=== PATIENT | female | born 1945 | race Caucasian/White ===

== ENCOUNTER → 2017-02-18 | Outpatient (CLI) | payer MEDICARE, BC ==
[~2017-02-18] MED LIST: AMLODIPINE-BENA1 CAP PO; ASPIRIN EC81 M1 PO; ASPIRINEC PO; AZOR 5-20 MG T1 EACH PO; CENTRUM SILVER PO; CYMBALTA PO; CYMBALTA30 MG PO; FLAGYL250 M1 PO; FLORASTOR PO; FLOVENT DI50 MCG/DIS INH; FOSAMAX PLUS D1 TA1 PO; GABAPENTIN600 MG PO; HCTZ PO; HYDROCHLOROTHIA25 MG PO; KETOTIFEN; LEVAQUIN750 M1 PO; LIDODERM30 EA TOP; LORTAB 7.5-3251 EACH PO; LOTREL 5/20 MG1 CAP PO; METAMUCIL; METAMUCIL SMOOT1 PKT PO; METAMUCIL1 PKT PO; MIRALAX17 GM PO; MOTRIN600 MG PO; NABUMETONE PO; NEURONTIN PO; OMEPRAZOLE20 M2 PO; OMNICEF PO; PREDNISONE PO; PRILOSEC PO; ROBAXIN 750750 M1 PO; ST JOSEPH ASPIR81 M1 PO; SULINDAC150 MG PO; TESSALON200 MG PO; TOLECTIN PO; TYLENOL ARTHRITIS; TYLENOL COLD SE1 TAB PO; ULTRAM; ULTRAM PO; VICODIN 5/1 TAB 5/50 PO; VICODIN 5/500 T1 TAB PO; VITAMIN B 6 PO; VITAMIN B-6200 MG PO; VITAMIN B650 M1 PO; ZADITOR; ZADITOR5 M1 OU; ZYRTEC PO; [UNRECOGNIZED DRUG - OTHER] PO
--- NOTE | ~2017-02-18 | MY29 ---
[facility] A Service of [facility] RADIOLOGY TEXT RESULTS PATIENT: SIOMARA VALDEZ LOCATION: [facility] : 41 UNIT #: [id number] AGE: [address]: Roxana Forrester APRN SEX: F ORDER DR: [id number] [facility] [address] [facility] [place], [place] [address] [id number] O MR#: [id number] Acc #: [id number] NAME: SIOMARA VALDEZ : 1945 SEX: F STUDY DATE/TIME: 02/18/2017 13:57 UNIT: [facility] ROOM: STUDY DESCRIPTION: [facility] SCREENING W/ CAD BILAT Attending Physician: oRxana Forrester A.P.R.N. Ordering Physician: Roxana Forrester A.P.R.N. Primary Care Physician: Nayeli Ibarra M.D. MEDICAL IMAGING REPORT This report is preliminary unless electronic signature is present EXAM Bilateral digital screening mammogram with CAD 02/18/2017 HISTORY Family history of breast cancer in her sister diagnosed at age of 40. No personal history of breast cancer or current complaints. COMPARISON Bilateral screening mammogram 02/13/2016 and 02/07/2015. FINDINGS CC and MLO views were obtained of each breast utilizing digital technique and reviewed with an FDA-approved CAD device. Breast tissue is predominantly fatty replaced. No suspicious nodule, architectural distortion or suspicious clustered microcalcification is seen. A few benign-appearing calcifications are present within each breast. IMPRESSION BIRADS 1. Negative screening mammogram. Routine screening mammogram recommended in 1 year. Patients over the age of 40 are entered into a reminder system with target due date for the next mammogram. A result letter will also be sent to the patient. BIRADS: 1 - Negative Dictated by... Jaci Schwarz M.D. [facility] A Service of [facility] RADIOLOGY TEXT RESULTS PATIENT: SIOMARA VALDEZ LOCATION: [facility] : 41 UNIT #: [id number] AGE: [address]: Roxana Forrester APRN SEX: F ORDER DR: THIS IS AN ELECTRONICALLY VERIFIED REPORT Jaci Schwarz M.D. at 02/20/2017 9:34 PM Ivan TD: 02/18/2017 16:26 JOB #: [id number] MEDICAL IMAGING REPORT Page 1 of 1 COPY
== END | disposition home or self-care (01) ==
LOC: CWCC 13:33
DX: Z12.31 Encounter for screening mammogram for malignant neoplasm of breast (principal); Z80.3 Family history of malignant neoplasm of breast
CPT/HCPCS: G0202